=== PATIENT | male | born 2000 | race Two or more races ===

== ENCOUNTER 2019-07-21 18:22 | Emergency (ER) | payer OTHER ==
[~2019-07-21] VITALS: Ht 180.3 cm; Wt 73.9 kg
[2019-07-21 18:34] VITALS: BP 115/71; Ht 180.3 cm; Wt 73.9 kg
== END 2019-07-21 21:18 | disposition home or self-care (01) ==
LOC: ED 18:22
DX: S02.2XXA Fracture of nasal bones, initial encounter for closed fracture (principal); W50.0XXA Accidental hit or strike by another person, initial encounter; Y93.67 Activity, basketball; Y92.310 Basketball court as the place of occurrence of the external cause; Y99.8 Other external cause status